=== PATIENT | male | born 1960 | race Caucasian/White ===

== ENCOUNTER 2017-01-08 17:07 | Inpatient (IN) | payer OTHER ==
[~2017-01-08] VITALS: Ht 172.7 cm; Wt 99.8 kg
[~2017-01-08 17:07] MED LIST: ANUSOL HC,ANUCO25 MG PR; Aspirin E.C. PO; Fish Oil PO; LEVAQUIN750 MG PO; MOTRIN600 MG PO; Motrin PO; PERCOCET 5/31 TABLET PO; VICODIN ES 7.51 EAC1 PO; Zocor PO
[2017-01-08 17:33] LABS: EOSINOPHIL (%) 0 % (0-5); HEMATOCRIT 46.9 % (38.0-50.0); IMMATURE GRANULOCYTE (%) 0.8 % (0.0-0.7); IMMATURE GRANULOCYTE COUNT 0.2 K/uL; INSTRUMENT ABS NEUTROPHIL CT 20.2 K/uL; LYMPHOCYTE COUNT 2.1 K/uL (1.0-2.8); MCH 31.7 PG (29.0-34.0); MCHC 33.7 G/DL (30.0-36.0); MEAN PLAT.VOLUME 10.2 uM^3 (9.0-12.4); MONOCYTE (%) 5.1 % (3-12); MONOCYTE COUNT 1.2 K/uL (0-0.8); NEUTROPHIL (%) 85.2 % (45-76); NEUTROPHIL COUNT 20.2 K/uL (1.8-6.4); PLATELET COUNT 577 K/uL (156-360); RBC DIS.WIDTH-CV 13.6 % (11.8-14.6); RBC DIS.WIDTH-SD 47.1 % (39-53); RED BLOOD COUNT 4.99 M/uL (4.00-5.50); WHITE BLOOD COUNT 23.7 K/uL (4.1-10.2)
[2017-01-08 17:43] LABS: AMYLASE 45 IU/L (1-118); CHLORIDE 104 mEq/L (99-109); SODIUM 140 mEq/L (136-147)
[2017-01-08 17:45] LABS: GLUCOSE 111 mg/dL (70-99); INTER. NORMALIZED RATIO 1.1; PROTHROMBIN TIME 11.4 (9.2-11.2); PTT 24.5 (25-32)
[2017-01-08 17:46] LABS: ANION GAP 11 MEQ/L (2-14)
[2017-01-08 17:48] LABS: SERUM ETHYL ALCOHOL < 10 mg/dL
[2017-01-08 17:49] LABS: GFR ESTIMATE (CALCULATED) > 59 mL/min/
[2017-01-08 17:50] LABS: UREA NITROGEN (BUN) 22 mg/dL (9-23)
[2017-01-08 17:52] LABS: LIPASE 25 U/L (1.0-51.0)
[2017-01-08 17:55] LABS: ADD MIUA? NO; BILIRUBIN NEGATIVE; BLOOD NEGATIVE; COLOR STRAW ((YELLOW)); GLUCOSE (STRIP) NEGATIVE; KETONES NEGATIVE; LEUKOCYTES NEGATIVE; NITRITE NEGATIVE; PROTEIN (STRIP) NEGATIVE; UCUL ADDED? NO; UROBILINOGEN 0.2 MG/DL (0.2-1.0)
[2017-01-08 17:57] LABS: TROP-I INTERPRETATION POSITIVE; TROPONIN-I 1.73 ng/mL (0.0-0.30)
[2017-01-08 18:05] LABS: COCAINE NEGATIVE (150 ng/mL); METHAMPHETAMINE NEGATIVE (500 ng/mL); PHENCYCLIDINE NEGATIVE (25 ng/mL); THC CANNABINOIDS NEGATIVE (50 ng/mL)
[2017-01-08 18:06] LABS: ADD MEDTOX COMMENT Y; AMPHETAMINE NEGATIVE (500 ng/mL); BARBITURATES NEGATIVE (200 ng/mL); BENZODIAZEPINES NEGATIVE (150 ng/mL); INTERNAL CONTROLS VALID? YES; METHADONE NEGATIVE (200 ng/mL); OPIATES (MORPHINE) PRESUMPTIVE POSITIVE (100 ng/mL); OXYCODONE NEGATIVE (100 ng/mL); PROPOXYPHENE NEGATIVE (300 ng/mL); TRICYCLIC ANTIDEPRESSANTS NEGATIVE (300 ng/mL)
[2017-01-08 19:15] VITALS: BP 187/92
[2017-01-08 19:22] VITALS: BP 178/87
[2017-01-08 20:51] LABS: METH RESISTANT S AUREUS PCR NEGATIVE (NEGATIVE)
[2017-01-08 20:59] LABS: PROBE CHECK PASS; SPECIMEN PROCESSING CONTROL PASS
[2017-01-08 21:01] VITALS: BP 173/88
[2017-01-08 22:00] VITALS: BP 169/94
[2017-01-08 23:00] VITALS: BP 151/78
[2017-01-08 23:24] LABS: EOSINOPHIL (%) 0.1 % (0-5); HEMATOCRIT 40.8 % (38.0-50.0); IMMATURE GRANULOCYTE (%) 0.7 % (0.0-0.7); IMMATURE GRANULOCYTE COUNT 0.1 K/uL; INSTRUMENT ABS NEUTROPHIL CT 13.5 K/uL; MCH 31.6 PG (29.0-34.0); MCHC 33.6 G/DL (30.0-36.0); MEAN PLAT.VOLUME 10.1 uM^3 (9.0-12.4); MONOCYTE (%) 5.1 % (3-12); MONOCYTE COUNT 0.9 K/uL (0-0.8); NEUTROPHIL (%) 76.7 % (45-76); NEUTROPHIL COUNT 13.5 K/uL (1.8-6.4); PLATELET COUNT 478 K/uL (156-360); RBC DIS.WIDTH-CV 13.4 % (11.8-14.6); RBC DIS.WIDTH-SD 46.1 % (39-53); RED BLOOD COUNT 4.34 M/uL (4.00-5.50); WHITE BLOOD COUNT 17.6 K/uL (4.1-10.2)
[2017-01-08 23:35] LABS: CREATINE KINASE 298 IU/L (1-294); TOTAL CK 298 IU/L (1-294)
[2017-01-08 23:41] LABS: CK-MB 32.8 ng/mL (0.0-4.9)
[2017-01-08 23:53] LABS: TROP-I INTERPRETATION POSITIVE
[2017-01-09] VITALS (22 sets, daily range): BP systolic 119–188; BP diastolic 66–96
[2017-01-09 05:54] LABS: BASOPHIL COUNT 0.1 K/uL (0-0.1); EOSINOPHIL (%) 0.4 % (0-5); EOSINOPHIL COUNT 0.1 K/uL (0-0.3); HEMATOCRIT 40.8 % (38.0-50.0); IMMATURE GRANULOCYTE (%) 0.6 % (0.0-0.7); IMMATURE GRANULOCYTE COUNT 0.1 K/uL; INSTRUMENT ABS NEUTROPHIL CT 11.1 K/uL; LYMPHOCYTE COUNT 3.8 K/uL (1.0-2.8); MCH 31.7 PG (29.0-34.0); MCHC 33.1 G/DL (30.0-36.0); MCV 95.8 FL (86-99); MEAN PLAT.VOLUME 10.5 uM^3 (9.0-12.4); MONOCYTE (%) 5.4 % (3-12); MONOCYTE COUNT 0.9 K/uL (0-0.8); NEUTROPHIL (%) 69.5 % (45-76); NEUTROPHIL COUNT 11.1 K/uL (1.8-6.4); PLATELET COUNT 447 K/uL (156-360); RBC DIS.WIDTH-SD 49.3 % (39-53); RED BLOOD COUNT 4.26 M/uL (4.00-5.50)
[2017-01-09 06:14] LABS: ANION GAP 8 MEQ/L (2-14); CHLORIDE 104 MEQ/L (99-109); CREATINE KINASE 445 IU/L (1-294); GFR ESTIMATE (CALCULATED) > 59 mL/min/; HDL CHOLESTEROL 42 MG/DL (Desirable>=40); LDL CHOLESTEROL 100 mg/dL (Desirable<100); NON-HDL CHOLESTEROL 148 mg/dL (Desirable<160); POTASSIUM 4.5 MEQ/L (3.7-5.4); SAMPLE HEMOLYSIS CHECK 0; SAMPLE ICTERIC CHECK 0; SAMPLE LIPEMIA CHECK 0; SODIUM 138 MEQ/L (136-147); TOTAL CHOLESTEROL 190 mg/dL (Desirable<200); TOTAL CK 445 IU/L (1-294); TRIGLYCERIDES 240 MG/DL (Normal: <150); UREA NITROGEN (BUN) 16 mg/dL (9-23)
[2017-01-09 06:18] LABS: TROP-I INTERPRETATION POSITIVE; TROPONIN-I 10.51 ng/mL (0.0-0.30)
[2017-01-09 06:20] LABS: GLUCOSE 78 mg/dL (70-99)
[2017-01-09 07:07] LABS: CK-MB 59.3 ng/mL (0.0-4.9)
[2017-01-09 08:12] LABS: Estimated Average Glucose 108 mg/dL (70-123); HEMOGLOBIN A1c (GLYCOHEMOGLOB) 5.4 % HGB (Below 5.7)
[2017-01-09 13:13] LABS: CREATINE KINASE 511 IU/L (1-294); TOTAL CK 511 IU/L (1-294); TROP-I INTERPRETATION POSITIVE
[2017-01-09 13:39] LABS: CK-MB 71.5 ng/mL (0.0-4.9)
[2017-01-09 19:22] LABS: TROP-I INTERPRETATION POSITIVE; TROPONIN-I 11.25 ng/mL (0.0-0.30)
[2017-01-09 20:31] LABS: CREATINE KINASE 382 IU/L (1-294); TOTAL CK 382 IU/L (1-294)
[2017-01-09 21:02] LABS: CK-MB 51.5 ng/mL (0.0-4.9)
[2017-01-10 00:10] VITALS: BP 119/71
[2017-01-10 05:20] VITALS: BP 125/77
[2017-01-10 06:08] LABS: CREATINE KINASE 204 IU/L (1-294); TOTAL CK 204 IU/L (1-294)
[2017-01-10 06:30] LABS: CK-MB 17.2 ng/mL (0.0-4.9)
[2017-01-10 06:38] LABS: TROP-I INTERPRETATION POSITIVE; TROPONIN-I 9.41 ng/mL (0.0-0.30)
[2017-01-10 09:00] VITALS: BP 142/78
[2017-01-10] MEDS ORDERED: ATORVASTATIN CA80 MG PO (13:46)
[2017-01-10] MEDS ORDERED: LOPRESSOR25 MG PO (13:47)
[2017-01-10] MEDS ORDERED: LISINOPRIL2.5 MG PO (13:47)
[2017-01-10] MEDS ORDERED: EFFIENT10 MG PO (13:48)
[2017-01-10] MEDS ORDERED: ASPIRIN EC325 MG PO (13:48)
== END 2017-01-10 14:53 | disposition home or self-care (01) | DRG 247 ==
LOC: EME 17:07 → CATH 18:25 → 4WEST 19:17
PROVIDERS: Emergency Medicine; Internal Medicine Cardiovascular Disease
DX: I21.3 ST elevation (STEMI) myocardial infarction of unspecified site (principal); D47.3 Essential (hemorrhagic) thrombocythemia; D72.829 Elevated white blood cell count, unspecified; Z82.49 Family history of ischemic heart disease and other diseases of the circulatory system; E78.5 Hyperlipidemia, unspecified; R94.31 Abnormal electrocardiogram [ECG] [EKG]; I25.10 Atherosclerotic heart disease of native coronary artery without angina pectoris
CPT/HCPCS: 71010; 80048; 80061; 81003; 82150; 82550; 82550 91; 82553; 83036; 83690; 84484; 84999; 85025; 85025 91; 85347; 85610; 85730; 86850; 86900; 86901; 87641; 93005; 99281; 99284; C1725; C1769; C1874; C1887; G0480; J1644; J2250; J3010; J3246; J7030

== ENCOUNTER 2017-01-29 10:35 | Observation (INO) | payer OTHER ==
[~2017-01-29] VITALS: Ht 172.7 cm; Wt 93.0 kg
[~2017-01-29 10:35] MED LIST changes: +ASPIRIN EC325 MG PO; +ATORVASTATIN CA80 MG PO; +EFFIENT10 MG PO; +LISINOPRIL2.5 MG PO; +LOPRESSOR25 MG PO
[2017-01-29 11:16] LABS: HEMATOCRIT 42.6 % (38.0-50.0); MCH 31.9 PG (29.0-34.0); MCV 93.8 FL (86-99); MEAN PLAT.VOLUME 10.5 uM^3 (9.0-12.4); PLATELET COUNT 639 K/uL (156-360); RBC DIS.WIDTH-CV 12.7 % (11.8-14.6); RBC DIS.WIDTH-SD 43.7 % (39-53); RED BLOOD COUNT 4.54 M/uL (4.00-5.50); WHITE BLOOD COUNT 5.9 K/uL (4.1-10.2)
[2017-01-29 11:23] LABS: CHLORIDE 106 mEq/L (99-109); POTASSIUM 4.3 mEq/L (3.7-5.4); SODIUM 138 mEq/L (136-147)
[2017-01-29 11:25] LABS: GLUCOSE 99 mg/dL (70-99)
[2017-01-29 11:26] LABS: ANION GAP 7 MEQ/L (2-14)
[2017-01-29 11:29] LABS: GFR ESTIMATE (CALCULATED) > 59 mL/min/
[2017-01-29 11:30] LABS: UREA NITROGEN (BUN) 16 mg/dL (9-23)
[2017-01-29 11:35] LABS: TROP-I INTERPRETATION NEGATIVE; TROPONIN-I < 0.01 ng/mL (0.0-0.30)
[2017-01-29] MEDS ORDERED: EFFIENT10 MG PO (15:22)
[2017-01-29] MEDS ORDERED: LITE COAT ASPI325 M1 PO (15:23)
[2017-01-29] MEDS ORDERED: NITROSTAT0.4 MG SL (15:23)
[2017-01-29 16:49] VITALS: BP 142/69
[2017-01-29 19:00] VITALS: BP 119/72
[2017-01-29 19:52] LABS: TROP-I INTERPRETATION NEGATIVE; TROPONIN-I 0.02 ng/mL (0.0-0.30)
[2017-01-30] VITALS: BP 104/67
[2017-01-30 01:14] LABS: TROP-I INTERPRETATION NEGATIVE; TROPONIN-I < 0.01 ng/mL (0.0-0.30)
[2017-01-30 04:06] VITALS: BP 90/50
[2017-01-30 09:32] VITALS: BP 117/61
[2017-01-30 11:22] VITALS: BP 121/68
== END 2017-01-30 13:56 | disposition home or self-care (01) ==
LOC: EME 10:35 → EDOF 15:36 → 5WEST 15:36
PROVIDERS: Hospitalist
DX: R07.89 Other chest pain (principal); I11.9 Hypertensive heart disease without heart failure; I44.7 Left bundle-branch block, unspecified; I25.10 Atherosclerotic heart disease of native coronary artery without angina pectoris; I25.2 Old myocardial infarction; Z95.5 Presence of coronary angioplasty implant and graft; E78.5 Hyperlipidemia, unspecified; E66.9 Obesity, unspecified
CPT/HCPCS: 71020; 71275; 80048; 84484; 85027; 85379; 93005; 99281; 99285; G0378; J7030; S0028

== ENCOUNTER 2017-07-03 02:15 | Emergency (ER) | payer OTHER ==
[~2017-07-03] VITALS: Ht 170.2 cm; Wt 94.5 kg
[~2017-07-03 02:15] MED LIST changes: +LITE COAT ASPI325 M1 PO; +NITROSTAT0.4 MG SL
[2017-07-03] MEDS ORDERED: TOBREX5 ML RIGHT EYE (04:02)
[2017-07-03 04:19] VITALS: BP 160/89
== END 2017-07-03 04:19 | disposition home or self-care (01) ==
LOC: EXP 02:15 → EME 02:15 → EXP 04:19
PROC: 08C8XZZ Extirpation of Matter from Right Cornea, External Approach (ICD-10-PCS; principal; 2017-07-03)
DX: T15.01XA Foreign body in cornea, right eye, initial encounter (principal); W22.8XXA Striking against or struck by other objects, initial encounter; F17.200 Nicotine dependence, unspecified, uncomplicated; Z79.82 Long term (current) use of aspirin
CPT/HCPCS: 99281; 99283